=== PATIENT | male | born 1965 | race Caucasian/White ===

== ENCOUNTER 2016-12-26 20:32 | Emergency (ER) | payer OTHER ==
[2016-12-26 20:53] VITALS: BP 123/78; PULSE 70; RESP 18; TEMP 97.9
--- NOTE | 2016-12-26 21:09 | ED ---
General Adult HPI - General Chief complaint: Skin/Abscess/Foreign Body Stated complaint: arm injury Time Seen by Provider: 12/26/16 20:51 Source: patient, RN notes reviewed Mode of arrival: ambulatory Limitations: no limitations - History of Present Illness Initial comments: This is a 51-year-old male who presents to the emergency department with chief complaint of right arm injury. Patient states that about one hour ago he reached his arm through his crossbow, the string broke, and it snapped back and hit him on the right forearm/wrist. He states that it instantly became swollen and bruised and had mild bleeding. He states he is unable to rotate his wrist. He rates his current pain as 7/10. Denies fever, chills, chest pain, shortness of breath, abdominal pain, nausea or vomiting, constipation or diarrhea, dysuria or hematuria, numbness or tingling, headache or vision changes. - Related Data Previous Rx's Medication Instructions Recorded Ibuprofen 600 mg PO Q6HR #20 tablet 12/26/16 Allergies Allergy/AdvReac Type Severity Reaction Status Date / Time No Known Allergies Allergy Verified 12/26/16 20:51 Review of Systems ROS Statement: Those systems with pertinent positive or pertinent negative responses have been documented in the HPI. ROS Other: All systems not noted in ROS Statement are negative. Past Medical History Past Medical History: No Reported History History of Any Multi-Drug Resistant Organisms: None Reported Past Surgical History: No Surgical Hx Reported Past Psychological History: No Psychological Hx Reported Smoking Status: Current every day smoker Past Alcohol Use History: Occasional Past Drug Use History: None Reported General Exam - General Exam Comments Initial Comments: General: Awake and alert, well-developed; in no apparent distress. HEENT: Head atraumatic, normocephalic. Pupils are equal, round and reactive to light. Extraocular movements intact. Neck: Supple. Normal ROM. Cardiovascular: Regular rate and rhythm. No murmurs, rubs or gallops. Chest symmetrical. Respiratory: Lungs clear to auscultation bilaterally. No wheezes, rales or rhonchi. Normal respiratory effort with no use of accessory muscles. Skin/Musculoskeletal: Right lateral wrist/forearm has hematoma and ecchymosis in a linear pattern. Small epithelial abrasions with minimal bleeding located over hematoma. Right wrist has normal range of motion with flexion and extension, but limited range of motion due to pain with rotation and abduction. Tenderness along carpometacarpal joint of 1st digit. Neurological: Alert and oriented x3. CN II-XII grossly intact. Speech is fluent and answers are appropriate. No focal neuro deficits. Psychiatric: Normal mood and affect. No overt signs of depression or anxiety noted. Limitations: no limitations Course Vital Signs 12/26/16 20:51 Temperature 97.9 F Pulse Rate 70 Respiratory 18 Rate Blood Pressure 123/78 O2 Sat by Pulse 97 Oximetry Medical Decision Making - Medical Decision Making This case was discussed with attending physician, Dr. Gordon. Right forearm and wrist x-ray showed no acute abnormality, including fracture or dislocation. Patient will be discharged home with prescription for ibuprofen 600mg to be taken every 6 hours. Patient was recommended to ice and elevate and use Weston bandage as needed. Patient deferred contact information for follow-up with orthopedics. Disposition Clinical Impression: Contusion of right forearm Disposition: HOME SELF-CARE Condition: Good Instructions: Hematoma (ED) Additional Instructions: Please take medications as prescribed. Please follow up with primary care provider within 1-2 days. Return to emergency department if symptoms should worsen or any concerns arise. Prescriptions: Ibuprofen 600 mg PO Q6HR #20 tablet Referrals: None,Stated [Primary Care Provider] - 1-2 days Time of Disposition: 21:27
--- NOTE | 2016-12-26 21:16 | XR ---
Exam: Right forearm HISTORY: Fall with pain 2 views right forearm were obtained. FINDINGS: No acute fracture subluxation is identified. Soft tissue structures are unremarkable. No osteolytic o r osteoblastic lesions are identified. IMPRESSION: No acute abnormality is identified.
--- NOTE | 2016-12-26 21:17 | XR ---
Exam: Right wrist complete 4 views the right wrist were obtained. HISTORY: Fall with pain in the right forearm and in the wrist. FINDINGS: No acute fracture subluxation is identified. There is no radiopaque foreign body. Scaphoid bone appea rs unremarkable. IMPRESSION: No acute abnormality is identified.
== END 2016-12-26 21:30 | disposition home or self-care (01) ==
LOC: EC 20:32
DX: S50.11XA Contusion of right forearm, initial encounter (principal); F17.200 Nicotine dependence, unspecified, uncomplicated; W20.8XXA Other cause of strike by thrown, projected or falling object, initial encounter
CPT/HCPCS: 99283

== ENCOUNTER 2017-03-12 11:08 | Observation (INO) | payer OTHER ==
[~2017-03-12 11:08] MED LIST: SODIUM CHLORIDE 0.9% 1,000 ML BAG ONE
[2017-03-12] MEDS ORDERED: SODIUM CHLORIDE 0.9% 100 ML BAG ONE ×2 (12:25→13:03)
[2017-03-12] MEDS ORDERED: INSULIN REGULAR 100 UNIT/ML VIAL ONE (12:25)
[2017-03-12] MEDS ORDERED: SODIUM CHLORIDE 0.9% 1,000 ML BAG ONE (12:25)
[2017-03-12] MEDS ORDERED: ONDANSETRON 4 MG/2 ML VIAL ONE (12:25)
[2017-03-12] MEDS ORDERED: AMPICILLIN-SULBACTAM 3 GM VIAL ONE (13:03)
[2017-03-12] MEDS ORDERED: HEPARIN SOD,PORK IN 0.45% NACL PMX 25,000 UNIT/500 ML BAG IV ONE (13:03)
[2017-03-12] MEDS ORDERED: ASPIRIN 81 MG ONE (13:03)
--- NOTE | 2017-03-13 07:47 | XR ---
EXAMINATION TYPE: TEMPORARY DATE OF EXAM: 03/12/2017 COMPARISON: NONE INDICATION: Chest pain x2 days TECHNIQUE: Frontal and lateral views of the chest are obtained. FINDINGS: The heart size is normal. The pulmonary vasculature is normal. The lungs are clear. IMPRESSION: 1. No acute pulmonary process.
--- NOTE | 2017-03-13 08:21 | HP ---
HISTORY AND PHYSICAL DATE OF SERVICE: 03/12/2017. CHIEF COMPLAINT: Arm swelling. HISTORY OF PRESENT ILLNESS: The patient is a 51-year-old, male, with a past medical history of arthritis, tobacco abuse, and marijuana use, who presented to the ER with complaints of right arm swelling. In the emergency department, he underwent an extensive evaluation. His initial vital signs were found to be within normal limits. Initial laboratory analysis was essentially unremarkable. He also complained to the ER of intermittent chest pain. EKG as reviewed by myself revealed normal sinus rhythm, with normal axis and normal intervals, and no significant ST-T wave changes. Initial troponin was negative. He was given a dose of Unasyn and arrangements were made to admit him to the observation unit. Patient seen and examined at bedside. He complains of left arm swelling that started approximately 2 weeks ago. It started after he was working laying pipe in an attic. He initially noticed it and then it seemed to resolve for about a week and then started up again last week. He describes that the area hurts and feels as though there is an outward pressure. He also describes forearm weakness. He has had some tingling down into his hand. The pain also radiates up into his shoulder. He has not had any fevers, chills, nausea, or vomiting. He has not noticed any redness of the area. He does feel a lump there, just distal to the elbow. He also reports intermittent chest pain for the last 2 weeks. He describes the chest pain as left-sided without radiation. It is a sharp and stabbing in nature. Today it lasted approximately less than 1 minute. It is associated with shortness of breath. He has also had a few episodes of lightheadedness and dizziness. He denies any diaphoresis, nausea or vomiting. As earlier reported, he has had some left- sided hand tingling which he reports is secondary to his forearm swelling. He has not seen a doctor in 20 years. He has not started or stopped any new medications recently. He has not tried taking anything for the chest pain as it usually resolves on its own. REVIEW OF SYSTEMS: Pertinent positives and negatives as per HPI above, all other 12-point review of systems is negative. PAST MEDICAL HISTORY: Arthritis. PAST SURGICAL HISTORY: None. SOCIAL HISTORY: Smokes 2.5 packs per day for the last 20 years, has not had a drink in over 20 years, consumes daily marijuana use. Lives with his , son and 2 daughters. Does not use any assistive devices. PAST FAMILY HISTORY: Father from cancer, mother from a ruptured abdominal aortic aneurysm. His half brother in his sleep at the age of 45. ALLERGIES: No known drug allergies. PHYSICAL EXAM: Vital signs reviewed and stable. LABS: Reviewed. White blood cell count 10.23, hemoglobin normal, troponin less than 0.04. GENERAL: Nontoxic, mild distress, appears at stated age, normal weight. HEAD: Normocephalic, atraumatic, symmetric. MOUTH: No lip lesions, mucous membranes moist. NECK: Supple. Trachea midline, no thyromegaly, no cervical lymphadenopathy. HEENT: Nose and ears atraumatic, hearing is intact. SKIN: Warm and dry. Multiple abrasions on bilateral hands. CARDIOVASCULAR: S1, S2. Without murmurs, rubs, gallops. Positive posterior tibial pulses bilaterally. No lower extremity edema. LUNGS: Clear to auscultation bilaterally without rhonchi, rales, or wheeze. N accessory muscle use. ABDOMEN: Soft, nontender to palpation. Nondistended. No guarding, no organomegaly. EXTREMITIES: Left forearm with significant swelling and tenderness to palpation. Able to fully extend the left for either and has equal benefits advisor strength bilaterally. No erythema or warmth noted over area of swelling. NEURO: Cranial nerves 2 through 12 grossly intact. No focal neuro deficits. Finger-to- nose intact bilaterally. Light touch intact in all 4 extremities. PSYCH: Alert, oriented, appropriate affect. ASSESSMENT: 1. Left upper extremity cellulitis versus abscess. Check left upper extremity ultrasound. Unasyn. Pain control. 2. Chest pain with significant cardiac risk factors into including family history, and smokes 2.5 packs per day. Aspirin 325 mg daily. Nitroglycerin as needed for chest pain. Heparin drip. Cycle troponins. EKG as needed for chest pain. Cardiology consultation. Nothing by mouth after midnight. Echocardiogram in a.m. Check CBC, basic metabolic profile and lipid profile in a.m. 3. Tobacco abuse. Counseled on cessation. Will not provide nicotine replacement at this point in time, as patient is still having chest pain. Above. 4. Surrogate decision maker is his , Laly Osullivan, cell phone [phone]. 5. Code status, FULL. 6. DVT prophylaxis. On heparin drip. 7. Case discussed with the patient, the ED physician, floor nurse. A total of 60 minutes was spent coordinating care of this complex patient. IVA / AURELIO: [id number] / MIKY
[2017-03-13] MEDS ORDERED: HEPARIN SODIUM,PORCINE 5,000 UNIT/ML 1 ML VIAL IV PRN (08:28)
[2017-03-13] MEDS ORDERED: HEPARIN SOD,PORK IN 0.45% NACL 25,000 UNIT in 0.45% NACL 1 500ML.BAG IV SCH (08:30)
[2017-03-13] MEDS ORDERED: MORPHINE SULFATE 5 MG/ML SYRINGE IV PRN ×2 (08:31→08:48)
[2017-03-13] MEDS ORDERED: ONDANSETRON 4 MG/2 ML VIAL IVP PRN (08:31)
[2017-03-13] MEDS ORDERED: SODIUM CHLORIDE 0.9% 500 ML IV SCH (08:45)
[2017-03-13] MEDS ORDERED: NITROGLYCERIN SL TABS 0.4 MG TAB SUBLINGUAL PRN (08:46)
[2017-03-13] MEDS ORDERED: HYDROcodone/APAP 5-325MG 1 EACH TAB PO PRN (08:47)
[2017-03-13] MEDS ORDERED: ACETAMINOPHEN TAB 325 MG TAB PO PRN (08:48)
[2017-03-13] MEDS ORDERED: MELATONIN 5 MG TABLET PO PRN (08:49)
[2017-03-13] MEDS ORDERED: ALPRAZolam 0.5 MG TAB PO PRN (08:49)
[2017-03-13] MEDS ORDERED: ASPIRIN 81 MG PO SCH (09:00)
[2017-03-13 09:18] VITALS: BP 115/64; PULSE 73; RESP 16; TEMP 97.9
--- NOTE | 2017-03-13 09:51 | CONS ---
CONSULTATION Mr. Osullivan is a 51-year-old gentleman who has not seen a physician in several years. He does some jess and siding work. He noticed for the last 1 week he is having swelling of his left arm. He went to the attic and did some work and he feels that he must have been bitten by a bug. There is swelling of the left forearm and also left upper arm to some extent, but there are no active signs of inflammation. He has been admitted with a diagnosis of left arm cellulitis and then complained of sharp intermittent chest pain. I was asked to see him regarding the chest pain. Quality of pain is atypical, does not suggest angina. He smokes 2 packs a day and also uses marijuana daily. Does not drink alcohol. Has not seen a physician. Has no other medical problems. Does not take any medication. Has no allergies. He is resting comfortably at the time at the time of my evaluation, complains of left arm pain and wishes to have coffee. Denies any chest discomfort to suggest angina. 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 No known medical problems. MEDICATIONS: Occasionally takes ibuprofen. EXAMINATION: Pressure is 118/70, pulse rate is about 70 per minute regular. HEENT unremarkable. Fundus was not examined by me. NECK: Supple. No JVD. I do not hear carotid bruits. No thyromegaly. Heart exam reveals S1, S2 heard normally without a rub, murmur or gallop. Lungs are clear. ABDOMEN: Soft, nontender. Upper extremity reveals a left arm swelling in the lower left arm just above the elbow and also left forearm has some swelling. No evidence of any redness or any warmth. Pulses are positive. No motor dysfunction. EKG revealed sinus mechanism, no acute changes. Initial 2 sets of troponins are normal. IMPRESSION: 1. Left arm cellulitis versus resolving inflammation. 2. Atypical chest pain. 3. Tobacco abuse. 4. No documented evidence of any prior myocardial infarction or CVA. RECOMMENDATION: I am recommending that patient should be treated for his left arm issues. No active workup for cardiac causes is necessary at this time. I have advised the patient to come in to see me in the office as an outpatient and I will arrange for some stress testing. No testing is necessary at this time. I discussed my thoughts in detail with the patient. MMODL / IJN: [id number] /
[2017-03-13 09:55] LABS: INR 1.1 (<1.2)
[2017-03-13 10:00] LABS: Partial Thromboplastin Time 27.5 sec (22.0-30.0); Prothrombin Time 10.3 sec (9.0-12.0)
[2017-03-13 10:18] LABS: Magnesium 2.1 mg/dL (1.6-2.3)
--- NOTE | 2017-03-13 10:21 | US ---
EXAMINATION TYPE: Upper extremity ultrasound, nonvascular DATE OF EXAM: 03/12/2017 COMPARISON: NONE CLINICAL HISTORY: Discomfort and edema of the left elbow and forearm for 2 weeks. SIDE PERFORMED: Left FINDINGS: There is no focal fluid collection or suspicious mass. Compressible avascular cystic struct ure is seen within the subcutaneous tissues possibly relating to a small cyst. Diffuse subcutaneous e salvatore is a noted as well as a small morphologically normal lymph node. IMPRESSION: Subcutaneous edema of the area of concern of the left arm without abscess. Findings could relate to g out, cellulitis, or other etiology.
--- NOTE | 2017-03-13 11:18 | P.DS ---
Providers Date of admission: 03/12/17 15:49 Expected date of discharge: 03/13/17 Attending physician: Snow Amaral DO Consults: 03/13/17 09:22 Consult Physician Routine Consulting Provider: [facility] Consult Reason/Comments: chest pain Do you want consulting provider notified?: Yes Primary care physician: Stated None - Discharge Diagnosis(es) (1) Chest pain Current Visit: Yes Status: Acute (2) Cellulitis of arm, left Current Visit: Yes Status: Acute (3) Tobacco abuse Current Visit: Yes Status: Acute (4) Dyslipidemia Current Visit: Yes Status: Acute Hospital Course: Patient is a 51-year-old male with a past medical history of tobacco abuse, and early family coronary artery disease who presented with complaints of left arm swelling and pain. He had also been having intermittent chest pain for the last 2 weeks. In the ER his initial EKG and troponins were negative. He is diagnosed with cellulitis of his left upper extremity. He was started on Unasyn and IV fluids. He was also started on a heparin drip for concern for acute coronary syndrome. He was admitted to the observation unit for further monitoring and and care. On admission his Unasyn was continued. His troponin was cycled and was negative. He had an ultrasound of his left upper extremity which showed possible gout but no abscess and edema of the tissues. He was seen by cardiology who felt he did not warn in inpatient cardiac workup. They recommended him following up in the office in approximately one week. By the morning after had mention his swelling of his left upper extremity had significantly improved. His lipid profile did come back with a total cholesterol 234 and LDL of 160. Lipitor 40 mg daily was initiated. He was able to move more without difficulty. The numbness in his hand had resolved. He was determined stable for discharge home. He will need to follow-up with her family doctor. He was given the number for both Dr. Finnegan's office and the [facility] clinic. He will follow-up with Dr. Agrawal in the office in approximately one week for further cardiac evaluation. He was provided with a prescription for Augmentin 875 mg twice daily for 7 days. He was also provided with a prescription for Motrin as needed for pain. He was provided with a prescription for Lipitor 40 mg daily. He was counseled on tobacco cessation. Patient seen and examined at bedside. Swelling in left upper extremity improved , Pain in left upper extremity improved, no recurrent chest pain, no nausea/ vomiting, or diarrhea. Vital signs reviewed and stable. General: Non toxic, no distress, appears at stated age Derm: warm, dry Head: atraumatic, normocephalic, symmetric Eyes: EOMI, no lid lag, anicteric sclera Mouth: no lip lesion, mucus membranes moist Cardiovascular: S1S2 reg, no murmur, positive posterior tibial pulse bilateral, Lungs: CTA bilateral, no rhonchi, no rales , no accessory muscle use Abdominal: soft, nontender to palpation, no guarding, no appreciable organomegaly Ext: no gross muscle atrophy, no edema, no contractures Neuro: CN II-XI grossly intact, no focal neuro deficits Psych: Alert, oriented, appropriate affect A total of 20 minutes of time were spent preparing this complex discharge summary . Pertinent Studies: X-ray left ultrasound- subcutaneous edema without abscess Patient Condition at Discharge: Stable Plan - Discharge Summary New Discharge Prescriptions: New Amoxic-Pot Clav 875-125Mg [Augmentin 875-125] 1 tab PO Q12HR #14 tablet Aspirin EC [Ecotrin Low Dose] 81 mg PO DAILY #30 tablet. Famotidine [Pepcid] 20 mg PO DAILY #30 tablet Continue Ibuprofen 600 mg PO Q6HR #30 tablet Discharge Medication List Amoxic-Pot Clav 875-125Mg [Augmentin 875-125] 1 tab PO Q12HR #14 tablet [Rx] Aspirin EC [Ecotrin Low Dose] 81 mg PO DAILY #30 tablet. 03/13/17 [Rx] Famotidine [Pepcid] 20 mg PO DAILY #30 tablet 03/13/17 [Rx] Ibuprofen 600 mg PO Q6HR #30 tablet 03/13/17 [Rx] Follow up Appointment(s)/Referral(s): Priscila Agrawal MD [STAFF PHYSICIAN] - 1 Week Chantal Finnegan MD [STAFF PHYSICIAN] - 1 Week Patient Instructions/Handouts: Chest Pain (DC), Cellulitis (DC), Cigarette Smoking and Your Health (GEN) Activity/Diet/Wound Care/Special Instructions: heart healthy diet Activity as tolerated Stop smoking. Take augmentin until prescription is completed. If Dr Finnegan does not take your insurnance then [facility] Discharge Disposition: HOME SELF-CARE
[2017-03-13] MEDS ORDERED: AMPICILLIN-SULBACTAM 3 GM in SODIUM CHLORIDE 0.9% 100 ML IVPB SCH (12:00)
[2017-03-13 13:16] LABS: Basophils # (A) 0.1 k/uL (0-0.2); Basophils % (A) 1 %; Eosinophils # (A) 0.1 k/uL (0-0.7); Eosinophils % (A) 1 %; HGB 16.7 gm/dL (13.0-17.5); Lymphocytes # (A) 2.5 k/uL (1.0-4.8); Lymphocytes % (A) 24 %; MCH 31.9 pg (25.0-35.0); MCHC 34.1 g/dL (31.0-37.0); MCV 93.4 fL (80.0-100.0); Mean Platelet Volume 8.4; Monocytes # (A) 0.5 k/uL (0-1.0); Monocytes % (A) 4 %; Neutrophils % (A) 68 %; Platelet Count 191 k/uL (150-450); RBC 5.25 m/uL (4.30-5.90); RDW 12.7 % (11.5-15.5); WBC 10.2 k/uL (3.8-10.6)
[2017-03-13 14:39] LABS: D-Dimer 0.24 mg/L FEU (<0.60); Partial Thromboplastin Time 23.2 sec (22.0-30.0); Prothrombin Time 9.9 sec (9.0-12.0)
[2017-03-13 15:55] LABS: ALT 35 U/L (21-72); AST 29 U/L (17-59); Alkaline Phosphatase 67 U/L (38-126); Anion Gap 9 mmol/L; Blood Urea Nitrogen 13 mg/dL (9-20); Calcium 9.6 mg/dL (8.4-10.2); Carbon Dioxide 24 mmol/L (22-30); Chloride 104 mmol/L (98-107); Glucose 86 mg/dL (74-99); Magnesium 2.1 mg/dL (1.6-2.3); Potassium 4.6 mmol/L (3.5-5.1); Sodium 137 mmol/L (137-145); Total Bilirubin 0.5 mg/dL (0.2-1.3); Total Protein 6.9 g/dL (6.3-8.2)
[2017-03-13 17:00] LABS: Creatine Kinase 78 U/L (55-170); Creatine Kinase MB 0.4 ng/mL (0.0-2.4); Troponin I <0.012 ng/mL (0.000-0.034)
[2017-03-13 17:37] LABS: Creatine Kinase 120 U/L (55-170); Creatine Kinase MB 0.6 ng/mL (0.0-2.4); Troponin I <0.012 ng/mL (0.000-0.034)
--- NOTE | 2017-03-13 21:00 | ECHOF ---
Referral Reason:chest pain MEASUREMENTS -------- HEIGHT: 177.8 cm WEIGHT: 81.6 kg BP: 115/64 RVIDd: 2.8 cm (< 3.3) IVSd: 1.2 cm (0.6 - 1.1) LVIDd: 5.0 cm (3.9 - 5.3) LVPWd: 1.2 cm (0.6 - 1.1) IVSs: 1.6 cm LVIDs: 3.3 cm LVPWs: 1.8 cm LA Diam: 3.3 cm (2.7 - 3.8) LAESV Index (A-L): 32.00 ml/m Ao Diam: 3.4 cm (2.0 - 3.7) AV Cusp: 2.0 cm (1.5 - 2.6) MV EXCURSION: 24.599 mm (> 18.000) MV EF SLOPE: 144 mm/s (70 - 150) EPSS: 0.5 cm MV E [place]: 0.96 m/s MV DecT: 228 ms MV A [place]: 0.76 m/s MV E/A Ratio: 1.26 FINDINGS -------- Resting bradycardia (HR<60bpm). This was a technically good study. The left ventricular size is normal. There is borderline concentric left ventricular hypertrophy. Overall left ventricular systolic function is normal with, an EF between 55 - 60 %. The right ventricle is normal in size. LA is midly dilated 29-33ml/m2. The right atrium is normal in size. The aortic valve is trileaflet and appears structurally normal. Mild mitral annular calcification present. The tricuspid valve appears structurally normal. There is no pulmonic regurgitation present. The aortic root size is normal. Normal inferior vena cava with normal inspiratory collapse consistent with estimated right atrial pre ssure of 5 mmHg. There is no pericardial effusion. CONCLUSIONS -------- 1. Resting bradycardia (HR<60bpm). 2. This was a technically good study. 3. The left ventricular size is normal. 4. There is borderline concentric left ventricular hypertrophy. 5. Overall left ventricular systolic function is normal with, an EF between 55 - 60 %. 6. The right ventricle is normal in size. 7. LA is midly dilated 29-33ml/m2. 8. The right atrium is normal in size. 9. The aortic valve is trileaflet and appears structurally normal. 10. Mild mitral annular calcification present. 11. The tricuspid valve appears structurally normal. 12. There is no pulmonic regurgitation present. 13. The aortic root size is normal. 14. Normal inferior vena cava with normal inspiratory collapse consistent with estimated right atrial pressure of 5 mmHg. 15. There is no pericardial effusion. GUEST SERVICES MANAGER: Jesusita Herbert RDCS
== END 2017-03-13 12:17 | disposition home or self-care (01) ==
LOC: EC 11:08 → 3OBS 15:49
PROVIDERS: ADMIT Internal Medicine; ATTEND Internal Medicine
DX: R07.89 Other chest pain (principal); L03.114 Cellulitis of left upper limb; M19.90 Unspecified osteoarthritis, unspecified site; F17.200 Nicotine dependence, unspecified, uncomplicated; F12.90 Cannabis use, unspecified, uncomplicated; Z82.49 Family history of ischemic heart disease and other diseases of the circulatory system
CPT/HCPCS: 93005; 93306; 85379; 80061; 80053; 82550 ×2; 82553 ×2; 83735 ×2; 84075; 84484 ×2; 85025; 85610 ×2; 85730 ×2; 71020; 76882; 99285; G0378 ×2

== ENCOUNTER → 2023-04-16 | Outpatient (CLI) | payer BC ==
--- NOTE | 2023-04-17 09:46 | PE ---
EXAMINATION TYPE: PET CT fusion skull to thigh DATE OF EXAM: 04/16/2023 COMPARISON: None Prior PET/CT: None at this location HISTORY: Lung mass TECHNIQUE: Following the intravenous administration of 12.84 mCi of F-18 FDG, whole body images are performed from the skull base to the midthigh. Images are reviewed on the computer in the coronal, a xial, and sagittal planes. Reconstructed rotating images are created on independent workstation and reviewed on the computer. A localization and attenuation correction CT is performed in conjunction with the PET scan. DLP: 311.71 mGycm SCAN: Initial Blood glucose: 79 mg/dL Average Mediastinum SUV: 2.29 Average Liver SUV: 2.23 FINDINGS: NECK: No abnormal uptake THORAX: There is increased radiotracer within a periaortic mass. This has some more central hypoechoi c intensity. SUV is 11.9. This has extension through the aortopulmonic window to the peribronchial re gions. This appears to be encasing the left main pulmonary artery. ABDOMEN: No abnormal uptake PELVIS: No abnormal uptake OSSEOUS STRUCTURES: No abnormal uptake LOCALIZATION CT: Hiatal hernia is present. Nonobstructing renal stones at the inferior pole left kidn ey. COMPARISON: None IMPRESSION: 1. 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 2. Distant metastasis is not identified. Some direct invasion into the mediastinum appears to be pres ent.
== END | disposition home or self-care (01) ==
LOC: RADPETMAIN 06:24
PROVIDERS: ATTEND Internal Medicine Interventional Cardiology
DX: R91.8 Other nonspecific abnormal finding of lung field (principal)
CPT/HCPCS: 78815; A9552